=== PATIENT | male | born 1965 | race Caucasian/White ===

== ENCOUNTER 2023-12-25 14:53 | Outpatient (CLI) | payer MEDICAID | END 2023-12-25 23:59 | disposition home or self-care (01) | LOC: RAD 14:53 | PROVIDERS: ATTEND Pediatrics Sports Medicine | DX: S80.851A Superficial foreign body, right lower leg, initial encounter (principal); Z96.651 Presence of right artificial knee joint; T14.8XXA Other injury of unspecified body region, initial encounter; X58.XXXA Exposure to other specified factors, initial encounter; Y93.89 Activity, other specified; Y92.89 Other specified places as the place of occurrence of the external cause; Y99.8 Other external cause status | CPT/HCPCS: 73590 ==

== ENCOUNTER 2024-01-26 15:09 | Outpatient (CLI) | payer MEDICAID | END 2024-01-26 23:59 | disposition home or self-care (01) | LOC: MRI 15:09 | PROVIDERS: ATTEND Podiatrist Foot & Ankle Surgery | DX: S86.312A Strain of muscle(s) and tendon(s) of peroneal muscle group at lower leg level, left leg, initial encounter (principal); M79.672 Pain in left foot; M25.376 Other instability, unspecified foot; M25.375 Other instability, left foot; M76.72 Peroneal tendinitis, left leg; M25.475 Effusion, left foot; M25.872 Other specified joint disorders, left ankle and foot; Q66.32 Other congenital varus deformities of feet, left foot; X58.XXXA Exposure to other specified factors, initial encounter; Y93.89 Activity, other specified; Y92.89 Other specified places as the place of occurrence of the external cause; Y99.8 Other external cause status | CPT/HCPCS: 73718; 73721 ==